=== PATIENT | male | born 1960 | race Caucasian/White ===

== ENCOUNTER 2024-05-18 08:03 | Observation (INO) | payer MEDICARE ==
[2024-05-13 10:16] LABS: BASOPHILS % 0.5 % (0.0-1.0); EOSINOPHILS # (AUTO) 0.1 (0.0-0.4); EOSINOPHILS % 1.5 % (0.0-6.0); HEMATOCRIT 50.5 % (38.2-49.6); HEMOGLOBIN 15.8 g/dL (14.0-18.0); LYMPHOCYTES # (AUTO) 1.4 (1.0-3.2); LYMPHOCYTES % 22.8 % (18.0-39.1); MEAN CORPUSCULAR HEMOGLOBIN 31.2 pg (28-32); MEAN CORPUSCULAR HGB CONC 31.3 g/dL (31-35); MEAN CORPUSCULAR VOLUME 99.6 fL (81-99); MONOCYTES # (AUTO) 0.6 (0.2-0.8); PLATELET COUNT 197 x10e3/uL (140-360); RED BLOOD COUNT 5.07 x10e6/uL (4.3-5.7)
[~2024-05-18 08:03] MED LIST: EPHEDRINE SULFATE INJ 50 MG/ML VIAL ONE; GLYCOPYRROLATE INJ 0.2 MG/ML VIAL ONE; LIDOCAINE HCL 2% LOCAL INJ 5 ML SDV VIAL INJ ONE; NEOSTIGMINE 1 MG/ML 10ML VIAL ONE; ONDANSETRON HCL INJ 2MG/ML 2ML 2 MG/ML VIAL ONE; PROPOFOL IV EMULSION 10 MG/ML 20 ML VIAL ONE; ROCURONIUM BROMIDE 10 MG/ML 5ML VIAL IV ONE; SEVOFLURANE INHAL SOLN 250 ML PEN BTL ONE
[2024-05-18] MEDS: CEFAZOLIN SODIUM 2 GM ONE (08:47)
[2024-05-18] MEDS: LACTATED RINGER'S 1,000 ML ONE (08:47)
[2024-05-18] MEDS: HYDROCODONE/APAP 5MG-325MG TAB PO SCH (13:07)
[2024-05-18] MEDS: LACTATED RINGER'S 1,000 ML INJ SCH (13:07)
[2024-05-18 13:30] VITALS: BP 116/67; PULSE 65; RESP 18; TEMP 98.1; O2SAT 99
[2024-05-18] MEDS ORDERED: no home meds (13:52)
[2024-05-18 15:56] VITALS: BP 138/72; PULSE 66; RESP 17; TEMP 97.6; O2SAT 98
[2024-05-18] MEDS ORDERED: MIDAZOLAM HCL 2 MG/2 ML VIAL ONE (18:06)
[2024-05-18] MEDS ORDERED: KETAMINE HCL INJ 50 MG/ML 10 ML VIAL ONE (18:06)
[2024-05-18 20:00] VITALS: BP 122/67; PULSE 72; RESP 21; TEMP 98.4; O2SAT 97
[2024-05-18] MEDS: HYDROCODONE/APAP 10MG-325MG TAB PO PRN (21:23)
[2024-05-18 23:25] VITALS: PULSE 63; RESP 18; O2SAT 95
[2024-05-18] MEDS: ONDANSETRON HCL INJ 2MG/ML 2ML 2 MG/ML VIAL IV PRN (23:50)
[2024-05-19] VITALS: BP_SYST 138; BP_SYST 90; BP_DIAS 52; BP_DIAS 72; PULSE 52; PULSE 63; RESP 18; RESP 19; TEMP 96.6; TEMP 97.6; O2SAT 100; O2SAT 95
[2024-05-19] MEDS: PROMETHAZINE 25MG/ NS 50ML (IV) IV PRN (00:55)
[2024-05-19 04:00] VITALS: BP 105/65; PULSE 60; RESP 18; TEMP 98.7; O2SAT 97
[2024-05-19 07:27] VITALS: BP 99/58; PULSE 64; RESP 19; TEMP 97.9; O2SAT 97
[2024-05-19 07:53] VITALS: PULSE 67; RESP 18; O2SAT 96
[2024-05-19 09:59] VITALS: BP 99/58; PULSE 67; RESP 18; TEMP 97.9; O2SAT 96
[2024-05-19] MEDS: HYDROCODONE/APAP 10MG-325MG TAB PO PRN (10:37)
== END 2024-05-19 11:09 | disposition home or self-care (01) ==
LOC: OR 08:03 → PACU V 11:08 → MED/SURG 12:15
PROVIDERS: ADMIT Orthopaedic Surgery; ATTEND Orthopaedic Surgery
DX: M19.012 Primary osteoarthritis, left shoulder (principal); K21.9 Gastro-esophageal reflux disease without esophagitis; I45.10 Unspecified right bundle-branch block; R00.1 Bradycardia, unspecified; Z01.810 Encounter for preprocedural cardiovascular examination; Z01.812 Encounter for preprocedural laboratory examination; Z01.818 Encounter for other preprocedural examination
CPT/HCPCS: 23470; 36415; 71046; 85025; 93005; 94799 ×2; 97161; C1713; C1776; G0378 ×2; J0690 ×3; J2003; J2250; J2405 ×2; J2550; J2704; J2710; J7121